=== PATIENT | female | born 1935 | race Caucasian/White ===

== ENCOUNTER 2016-12-23 19:41 | Emergency (ER) | payer OTHER ==
--- NOTE | 2016-12-23 20:10 | EDPHY ---
General Narrative: CHIEF COMPLAINT: Nosebleed HISTORY OF PRESENT ILLNESS: Patient complains of nosebleed that started around 7:00 p.m.. This was after she sneezed. Bleeding is primarily of the left nostril. She does feel some bleeding on the back of throat. No difficulty breathing. No gagging or vomiting. No stridor. No chest pain. No lightheadedness or syncope. She does take Coumadin for atrial fibrillation. INR was last checked on the 10 December was 2.3. She has no bleeding from the gums or elsewhere. She has had multiple episodes of epistaxis in the past. None of which required emergency department visit or surgical intervention. She has no established ENT physician. She has applied pressure but no improvement of the symptoms. No other associated complaints or modifying factors. REVIEW OF SYSTEMS: Ten systems reviewed and are negative unless otherwise noted in the HPI PCP: Avelina Morales PA-C SPECIALISTS: Dr. Gandara, Cardiology PAST MEDICAL HISTORY: Which fibrillation, appendicitis PAST SURGICAL HISTORY: Appendectomy with small bowel resection, tonsillectomy, cholecystectomy SOCIAL HISTORY: Nonsmoker. Lives independently FAMILY HISTORY: Noncontributory EXAMINATION General Appearance: Alert, no distress Head: normocephalic, atraumatic Eyes: Pupils equal and round, no conjunctival pallor or injection ENT, Mouth: Mucous membranes moist. There is dried blood around the lips and nares. There is a clot in the left external narrow. Airway is patent Neck: Normal inspection, supple, non-tender Respiratory: No retractions or distress Cardiovascular: Irregularly irregular. Rate is 70. Mild Systolic murmur Neurological: A&O, nonfocal, normal gait Skin: Warm and dry, no rash. Dried blood around the nares and oropharynx. No lacerations. Multiple, various stages bruising of the extremities. Extremities: Nontender, no pedal edema. Symmetric range of motion Psychiatric: Mood and affect normal DIFFERENTIAL DIAGNOSES: Including but not limited to anterior epistaxis, posterior epistaxis, complicated epistaxis, Coumadin coagulopathy MDM: 8:10 p.m. Spontaneous epistaxis after sneezing. She has no headache. She has no lightheadedness, chest pain or dizziness. No syncope. Nose clamp was placed 10 minutes prior to my examination. I will left this remain in place for another 10 minutes and re-examine. Blood pressure at triage was greater than 200 systolic. I feel that this is an I brunt reading. She does not have a history of hypertension, nor does she take anti hypertensive medication. We will recheck this at this time. 8:45 p.m. Patient re-evaluated. She says that it began to improve and then started to worsen again. It is only from the left side. This is despite having a clot in the external there and the clip in place for over 30 minutes. I have administered Afrin and topical lidocaine. 8:55 p.m. Bleeding continues but nonpulsatile. Unable to visualize the source, thus I have placed a rhino rocket. This was done without complication. INR and CBC are being drawn at this time. She is in no acute distress. Airway remains patent. 9:10 p.m. Patient re-evaluated. No bleeding at this time. Continue to monitor. Labs pending 9:49 p.m. Patient re-evaluated. No bleeding to this point. Her CBC is normal. Her INR is therapeutic. She has had no chest pain. Her blood pressures improved. Discharged home with Keflex prepack. Prescription for Keflex. And I will refer her to ENT. She is to contact him in the morning for outpatient management. She is to return here for any bleeding, posterior bleeding, chest pain, dizziness, lightheadedness. She is comfortable with this plan and discharged home in stable condition Procedure: Epistaxis management Consent: Verbal Indication: Anterior epistaxis, Coumadin coagulopathy Description: Using suction, nasal speculum a large clot was removed from the left nare. There was bleeding. No direct visualization of the source of the bleed. A 7.5 cm anterior-posterior rhino rocket was placed without complication. Tolerated the this seems to be hemostasis at this point. I will monitor. Complications: None EBL: 10 mL - History Smoking Status: Never smoked - Objective Vital Signs: Initial Vital Signs Temperature (C) 98.6 F 12/23/16 19:56 Heart Rate 98 12/23/16 19:56 Respiratory Rate 18 12/23/16 19:56 Blood Pressure 202/105 H 12/23/16 19:56 O2 Sat (%) 97 12/23/16 19:56 O2 Delivery Mode Room Air Allergies/Adverse Reactions: erythromycin base [Erythromycin Base] Allergy (Severe, Verified 05/23/15 09:25) Severe Abdominal Pain Penicillins Allergy (Severe, Verified 05/23/15 09:25) Rash Shellfish *RETIRED-11/26/11 [Shellfish] Allergy (Severe, Verified 05/23/15 09:25 ) Sulfa (Sulfonamide Antibiotics) Allergy (Severe, Verified 05/23/15 09:25) Rash Tetanus & Diphthe *RETIRED-11/26/11 [Tetanus and Diphtheria Toxoid] Allergy ( Severe, Verified 05/23/15 09:25) Whole Arm Became Red and Edematous tetracycline [Tetracycline] Allergy (Severe, Verified 05/23/15 09:25) Vomiting Home Medications: Medication Instructions Recorded Benzonatate [Tessalon Pearles] 100 mg PO TID PRN #20 cap 05/23/15 Ca/D3/Mag Ox/Zinc/Business Manager/Brock/Bor 05/23/15 [Calcium +D & Minerals Chew Tab] Digoxin [Lanoxin 0.25 mg] 05/23/15 Multivitamins [Multivitamin (OTC)] 05/23/15 Warfarin Sodium [Coumadin 1MG (*)] 05/23/15 Cephalexin [Keflex (*)] 500 mg PO QID #36 cap 12/23/16 Laboratory Results: Laboratory Results 12/23/16 20:55 12/23/16 12/23/16 20:55 20:55 WBC 9.80 10^3/uL H 10^3/uL (3.80-9.50) RBC 4.00 10^6/uL L 10^6/uL (4.18-5.33) Hgb 12.6 g/dL g/dL (12.6-16.3) Hct 36.7 % L % (38.0-47.0) MCV 91.8 fL fL (81.5-99.8) MCH 31.5 pg pg (27.9-34.1) MCHC 34.3 g/dL g/dL (32.4-36.7) RDW 13.9 % % (11.5-15.2) Plt Count 296 10^3/uL 10^3/uL (150-400) PT 25.4 SEC H SEC (12.0-15.0) INR 2.29 H (0.83-1.16) APTT 33.4 SEC SEC (23.0-38.0) Medications Given: Discontinued Medications Oxymetazoline HCl (Afrin Nasal [place]) 2 sprays EACHNARE EDNOW ONE Stop: 12/23/16 20:04 Last Admin: 12/23/16 20:49 Dose: 1 spray Silver Nitrate/Potassium Nitrate (Silver Nitrate Applicator) 1 each TP EDNOW ONE Stop: 12/23/16 20:54 Last Admin: 12/23/16 20:53 Dose: 1 each Departure - Departure Disposition: Home, Routine, Self-Care Clinical Impression: Acute anterior epistaxis, Warfarin-induced coagulopathy Condition: Good Instructions: Nosebleed (ED), Blood Thinners (ED), Cephalexin (By mouth) Additional Instructions: 1. Keflex 4 times daily while awake 2. Contact ENT physician in the morning for definitive care 3. Contact primary care physician in the morning for follow-up 4. contact cadd manager in the morning to inform them of your nose bleed due to Coumadin 5. ED precautions for return of bleeding, headache, chest pain, lightheadedness , dizziness or loss of consciousness Referrals: Avelina Morales PA [Primary Care Provider] - As per Instructions Mati Jesus MD [Medical Doctor] - As per Instructions Prescriptions: Cephalexin [Keflex (*)] 500 mg PO QID #36 cap
[2016-12-23] MEDS ORDERED: SILVER NITRATE APPLICATOR 1 APPL TP ONE (20:36)
[2016-12-23] MEDS: OXYMETAZOLINE 30 ML NASAL SPRAY EACHNARE ONE (20:49)
[2016-12-23] MEDS: SILVER NITRATE APPLICATOR 1 APPL TP ONE (20:53)
[2016-12-23 21:14] LABS: HEMATOCRIT 36.7 % (38.0-47.0); HEMOGLOBIN 12.6 g/dL (12.6-16.3); MEAN CELL HEMOGLOBIN 31.5 pg (27.9-34.1); MEAN CELL HEMOGLOBIN CONCENTR. 34.3 g/dL (32.4-36.7); MEAN CELL VOLUME 91.8 fL (81.5-99.8); RED CELL DISTRIBUTION WIDTH 13.9 % (11.5-15.2)
[2016-12-23 21:23] LABS: APTT 33.4 SEC (23.0-38.0); INR 2.29 (0.83-1.16); PROTIME(PATIENT) 25.4 SEC (12.0-15.0)
[2016-12-23] MEDS: CEPHALEXIN 500MG PREPACK#4 BTL TAKEHOME ONE (22:05)
[2016-12-23 22:16] VITALS: BP 170/80; PULSE 77; RESP 20; TEMP 98.4; O2SAT 96
== END 2016-12-23 22:16 | disposition home or self-care (01) ==
PROC: 2Y41X5Z Packing of Nasal Region using Packing Material (ICD-10-PCS; principal; 2016-12-23)
DX: R04.0 Epistaxis (principal); D68.9 Coagulation defect, unspecified

== ENCOUNTER → 2018-08-15 | Outpatient (CLI) | payer OTHER | LOC: FIMAGING 09:51 ==

== ENCOUNTER → 2018-08-21 | Outpatient (CLI) | payer OTHER | LOC: FIMAGING 14:44 ==